=== PATIENT | female | born 2000 | race African-American/Black ===

== ENCOUNTER 2024-10-02 07:19 | Emergency (ER) | payer OTHER ==
[~2024-10-02] VITALS: Ht 162.6 cm; Wt 77.7 kg
[2024-10-02 07:40] VITALS: BP 121/71; TEMP 97.3; O2SAT 100
== END 2024-10-02 12:01 | disposition home or self-care (01) ==
LOC: M ED 07:19
DX: S83.91XA Sprain of unspecified site of right knee, initial encounter (principal); W00.0XXA Fall on same level due to ice and snow, initial encounter; Y92.410 Unspecified street and highway as the place of occurrence of the external cause; Y93.89 Activity, other specified; Y99.9 Unspecified external cause status

== ENCOUNTER 2025-02-22 08:24 | Day surgery (SDC) | payer OTHER ==
[~2025-02-22] VITALS: Ht 162.6 cm; Wt 81.1 kg
[~2025-02-22 08:24] MED LIST: NORT1TAB3 PO
[2025-02-22] MEDS ORDERED: LR 1,000 ML IV SCH (09:00)
[2025-02-22 09:14] LABS: PLATELET COUNT, AUTOMATED 234 10^3/uL (150-450)
[2025-02-22 09:37] LABS: CALCIUM LEVEL 8.6 MG/DL (8.5-10.1); CARBON DIOXIDE LEVEL 27 MMOL/L (20-31); CHLORIDE LEVEL 104 MMOL/L (98-107); CREATININE FOR GFR 0.80 MG/DL (0.55-1.30); GLOMERULAR FILTRATION RATE > 90.0 (>60); POTASSIUM SERUM 4.4 MMOL/L (3.5-5.1); SODIUM LEVEL 141 MMOL/L (136-145)
[2025-02-22] MEDS ORDERED: ONDANSETRON 4MG 2ML VIAL As Ordered ONE (10:46)
[2025-02-22] MEDS ORDERED: LIDOCAINE 2% 100 MG/5 ML SDV (FOR ANES.) As Ordered ONE (10:46)
[2025-02-22] MEDS ORDERED: dexAMETHasone 4 MG/ML 1 ML VIAL As Ordered ONE (10:46)
[2025-02-22] MEDS ORDERED: dexmedeTOMIDine (4 MCG/ML) 200 MCG/50 ML BTL As Ordered ONE (10:47)
[2025-02-22] MEDS ORDERED: MIDAZOLAM INJ 2 MG/2 ML VIAL As Ordered ONE (10:47)
[2025-02-22] MEDS ORDERED: LIDOCAINE 5% OINT 30 GM TUBE As Ordered ONE (11:29)
[2025-02-22] MEDS: POLYSPORIN OPHTH OINT 3.5 GM As Ordered ONE (12:02)
[2025-02-22] MEDS ORDERED: ACETAMINOPHEN 1000MG/100ML IV BAG As Ordered ONE (12:31)
[2025-02-22] MEDS: LIDOCAINE 2% W/EPINEPHrine 20 ML VIAL **PRES FREE As Ordered ONE (12:45)
[2025-02-22] MEDS: TRIAMCINOLONE ACETONIDE SUSP 40MG/ML 1ML VIAL As Ordered ONE (12:45)
[2025-02-22] MEDS ORDERED: ONDANSETRON 4MG 2ML VIAL IV PRN (13:05)
[2025-02-22] MEDS: HYDROMORPHONE HCL 0.5 MG/0.5 ML SYRINGE IV PRN (13:32)
[2025-02-22 14:15] VITALS: BP 123/72; TEMP 96.8; O2SAT 96
== END 2025-02-22 14:41 | disposition home or self-care (01) ==
LOC: M SDC 08:24
PROVIDERS: ATTEND Plastic Surgery Surgery of the Hand
DX: L91.0 Hypertrophic scar (principal); Z79.3 Long term (current) use of hormonal contraceptives
CPT/HCPCS: 11443; 36415; 80048; 81025; 85027; 88302; J0131; J0690; J1100; J1171; J2250; J2405; J3010; J3301